=== PATIENT | male | born 1990 | race Caucasian/White ===

== ENCOUNTER → 2023-05-15 12:53 | Outpatient (BNVA) | payer BC, SELFPAY | PROVIDERS: Visit Provider Nurse Practitioner | DX: S62.642A Nondisplaced fracture of proximal phalanx of right middle finger, initial encounter for closed fracture (principal); X58.XXXA Exposure to other specified factors, initial encounter | CPT/HCPCS: 73130 ==

== ENCOUNTER 2023-05-21 17:30 | Outpatient (CLI) | payer BC, SELFPAY | END 2023-05-21 17:31 | disposition home or self-care (01) | LOC: SPT 17:31 | PROVIDERS: Visit Provider Nurse Practitioner | DX: Z46.89 Encounter for fitting and adjustment of other specified devices (principal); S62.64 Nondisplaced fracture of proximal phalanx of finger; X58.XXXD Exposure to other specified factors, subsequent encounter | CPT/HCPCS: 97760; L3984 ==

== ENCOUNTER → 2023-06-11 14:53 | Outpatient (BNVA) | payer BC, SELFPAY | PROVIDERS: Visit Provider Nurse Practitioner | DX: S62.642A Nondisplaced fracture of proximal phalanx of right middle finger, initial encounter for closed fracture; X58.XXXA Exposure to other specified factors, initial encounter; Y93.K1 Activity, walking an animal | CPT/HCPCS: 73130 ==